=== PATIENT | male | born 1955 | race Caucasian/White ===

== ENCOUNTER → 2017-01-07 | Outpatient (CLI) | payer BC | END | disposition home or self-care (01) | LOC: GMAB 10:58 | PROVIDERS: ATTEND Family Medicine | DX: Z00.01 Encounter for general adult medical examination with abnormal findings (principal) ==

== ENCOUNTER → 2018-01-16 | Outpatient (CLI) | payer BC | LOC: GMAE 14:10 | PROVIDERS: ATTEND Family Medicine | DX: Z00.01 Encounter for general adult medical examination with abnormal findings (principal) ==

== ENCOUNTER → 2020-01-05 | Outpatient (CLI) | payer BC | LOC: GMAE 11:04 | PROVIDERS: ATTEND Family Medicine | DX: Z00.00 Encounter for general adult medical examination without abnormal findings (principal) ==

== ENCOUNTER → 2020-02-04 | Outpatient (CLI) | payer BC | LOC: RESP 15:30 | PROVIDERS: ATTEND Family Medicine | DX: I48.91 Unspecified atrial fibrillation (principal) ==

== ENCOUNTER 2020-04-05 12:16 | Emergency (ER) | payer BC ==
--- NOTE | 2020-04-05 13:04 | ED.PDOC ---
History of Present Illness - General Chief Complaint: ENT Problem Stated Complaint: sore throat,cough Time Seen by Provider: 04/05/20 12:23 - History of Present Illness Comments: PRESENTS FOR COUGH SORE THROAT, RUNNY NOSE FOR 3-4 DAYS, NO FEVER. HISTORY OF DM. OBESITY. BMI 41. Possible Cause: no prior episodes Improving Factors: nothing Worsening Factors: nothing Associated Symptoms: denies symptoms Allergies/Adverse Reactions: Allergies Shellfish Allergy Allergy (Verified 01/26/15 10:03) Home Medications: Ambulatory Orders Losartan Potassium & Hydrochlo [Losartan Potassium/Hydroc 100-12.5 mg] 1 tab PO DAILY 11/11/14 Metformin HCl [Glucophage] 500 mg PO DAILY 11/11/14 Doxycycline (Monohydrate) [Doxycycline] 100 mg PO BID #28 cap 12/09/15 Tramadol HCl 50 mg PO Q4H #30 tab 12/09/15 Review of Systems - Review of Systems Constitutional: States: no symptoms reported EENTM: States: no symptoms reported Respiratory: States: no symptoms reported Cardiology: States: no symptoms reported Gastrointestinal/Abdominal: States: no symptoms reported Genitourinary: States: no symptoms reported Past Medical History (General) - Patient Medical History Hx Seizures: No Hx Stroke: No Hx Asthma: No Hx of COPD: No Hx Congestive Heart Failure: Yes Hx Pacemaker: No Hx Hypertension: Yes Hx Diabetes: No Hx MRSA: No Surgical History: no surgical history - Vaccination History Hx Tetanus, Diphtheria Vaccination: Yes - 2014 Hx Influenza Vaccination: No Hx Pneumococcal Vaccination: Yes - Social History Hx Tobacco Use: Yes Hx Chewing Tobacco Use: Yes Hx Alcohol Use: No Hx Substance Use: No Hx Physical Abuse: No Hx Emotional Abuse: No Family Medical History - Family History Father Family History: No Known Living Status: Hx Family Cancer: Yes Physical Exam - Physical Exam General Appearance: Alert, Anxious, No apparent distress Eye Exam: bilateral normal ENT Exam: normal ENT inspection Neck: non-tender Respiratory: chest non-tender, lungs clear, normal breath sounds Cardiovascular/Chest: normal peripheral pulses Gastrointestinal/Abdominal: normal bowel sounds Extremity: normal range of motion Neurologic: alert, oriented x 3 Skin Exam: normal color, warm/dry Departure - Departure Clinical Impression: URI (upper respiratory infection) Qualifiers: URI type: unspecified viral URI Qualified Code(s): J06.9 - Acute upper respiratory infection, unspecified Time of Disposition: 13:24 Disposition: Discharge to Home or Self Care Departure Forms: ED Discharge - Pt. Copy, Patient Portal Self Enrollment Instructions: DI for Ear Pain-Adult, Viral Upper Respiratory Infection, Adult (DC) Referrals: EDNA MORROW MD [Primary Care Provider] - 1-2 Weeks Home Medications: Ambulatory Orders Losartan Potassium & Hydrochlo [Losartan Potassium/Hydroc 100-12.5 mg] 1 tab PO DAILY 11/11/14 Metformin HCl [Glucophage] 500 mg PO DAILY 11/11/14 Doxycycline (Monohydrate) [Doxycycline] 100 mg PO BID #28 cap 12/09/15 Tramadol HCl 50 mg PO Q4H #30 tab 12/09/15 Additional Instructions: PLEASE FOLLOW UP WITH YOUR PCP, CONSIDER REPEAT COVID TEST IN 3 DAYS IF SYMPTOMS PERSIST OR WORSEN.
--- NOTE | 2020-04-05 13:06 | RAD ---
EXAM DESCRIPTION: Chest,1 View CLINICAL HISTORY: Cough COMPARISON: None Available. TECHNIQUE: One view radiograph of the chest FINDINGS: Cardiac silhouette shows cardiomegaly. Pulmonary vascularity is upper limits of normal. Subtle hazy alveolar opacities in the lateral aspect of both lungs. No significant pleural effusion. No pneumothorax. No acute osseous abnormality. IMPRESSION: 1. Subtle hazy alveolar opacities lateral aspect of both lungs may represent early pulmonary infiltrates (including viral pneumonia) versus atelectasis. 2. Cardiomegaly without congestive heart failure. Electronically signed by: Js Moncada MD 04/05/2020 1:[address] [facility]
[2020-04-05 13:43] VITALS: BP 117/84; TEMP 97.9; O2SAT 95
== END 2020-04-05 13:43 | disposition home or self-care (01) ==
LOC: ER 12:16
DX: J06.9 Acute upper respiratory infection, unspecified (principal); E11.9 Type 2 diabetes mellitus without complications; I50.9 Heart failure, unspecified; I11.0 Hypertensive heart disease with heart failure; E66.9 Obesity, unspecified; Z20.822 Contact with and (suspected) exposure to COVID-19; Z79.899 Other long term (current) drug therapy; Z79.84 Long term (current) use of oral hypoglycemic drugs; Z87.891 Personal history of nicotine dependence; Z91.013 Allergy to seafood; Z68.41 Body mass index [BMI] 40.0-44.9, adult